=== PATIENT | female | born 1950 | race African-American/Black ===

== ENCOUNTER 2018-07-10 14:56 | Emergency (ER) | payer MEDICARE ==
[~2018-07-10] VITALS: Ht 162.6 cm; Wt 68.0 kg
--- NOTE | 2018-07-10 15:10 | NUR ---
ED Nurse Note: Pt came into to Er after pulling her right calf muscle while crossing the street x 1 hour ago. Complaining of 3/10 rt calf pain. Pt stated she took a tylenol x 1 hour ago after incident. A + O x4. Ambulatory. Skin warm to touch. No edema, redness, or trauma noted.
--- NOTE | 2018-07-10 15:20 | NUR ---
ED Nurse Note: Notified radiology of xray order. Awaiting arrival.
--- NOTE | 2018-07-10 15:36 | NUR ---
ED Nurse Note: X-RAY AT BEDSIDE FOR IMAGING.
--- NOTE | 2018-07-10 15:54 | NUR ---
ED Nurse Note: Pt declined knee immobilizer.
[2018-07-10 16:03] VITALS: BP 158/70
--- NOTE | 2018-07-10 16:05 | NUR ---
ED Nurse Note: Discharge instructions given to pt. Answered all questions. Verbalized understanding. No acute distress noted. ID band removed. Left ER w/ all belongings and w/ a steady gait.
--- NOTE | 2018-07-10 16:27 | Emergency Room Report ---
History of Present Illness General Chief Complaint: Lower Extremity Injury Source: Patient (ANANDA STEWARD) Present Illness HPI The patient is a 68-year-old female presenting for right knee pain. She states that she was walking today, placed her foot on uneven ground, and felt her knee twist. She heard a popping noise and felt pain to the right knee. Pain does not radiate. Worse with movement. Described as a 6 out of 10 dull ache. She did not fall. She denies previous injury to the knee. She denies any other symptoms including numbness, tingling, swelling (ANANDA STEWARD.Dillon) Allergies: Coded Allergies: No Known Allergies (Unverified , 07/10/18) Patient History Past Medical History: see triage record Pertinent Family History: none Reviewed Nursing Documentation: PMH: Agreed; PSxH: Agreed (ANANDA STEWARD) Nursing Documentation-PMH Hx Cardiac Problems: Yes - THROMBOSIS(1995) (ANANDA STEWARD) Review of Systems All Other Systems: negative except mentioned in HPI (ANANDA STEWARD P.AHermila) Physical Exam Vital Signs Date Time Temp Pulse Resp B/P (MAP) Pulse Ox O2 Delivery O2 Flow Rate FiO2 07/10/18 15:04 98.6 78 16 194/99 97 Room Air Sp02 EP Interpretation: reviewed, normal General Appearance: no apparent distress, alert, GCS 15, non-toxic Head: normocephalic, atraumatic Eyes: bilateral eye normal inspection, bilateral eye PERRL Musculoskeletal: normal inspection, normal range of motion, tender - posterior R knee Neurologic: alert, oriented x3, responsive, motor strength/tone normal, sensory intact, speech normal Psychiatric: judgement/insight normal, memory normal, mood/affect normal, no suicidal/homicidal ideation Skin: normal color, no rash, warm/dry, well hydrated (ANANDA STEWARD) Procedures Splinting Progress Pt declined (ANANDA STEWARD) Medical Decision Making PA Attestation Dr. Girard is my supervising physician. Patient management was discussed with my supervising physician (ANANDA STEWARD) Diagnostic Impression: Primary Impression: Knee sprain Qualified Codes: S83.91XA - Sprain of unspecified site of right knee, initial encounter ER Course The patient is a 68-year-old female presenting for right knee pain. Ddx considered include but not limited to sprain/strain, fracture, contusion Physical exam: No apparent distress Right knee: No obvious deformity. Full active range of motion is intact. No laxity. Normal gait. No edema. No skin changes. There is tenderness to palpation over posterior aspect. Right knee x-ray unremarkable for acute findings Right knee brace is ordered but patient refused. She also refused prescription medication. She was told to follow-up with primary care as soon as possible for further evaluation and treatment. She is told to return to emergency Department if she changes her mind about knee brace and/or prescription. ER precautions given (ANANDA STEWARD) Other X-Ray Diagnostic Results Other X-Ray Diagnostic Results : X-Ray ordered: R knee # of Views/Limited Vs Complete: 3 View Indication: Pain EP Interpretation: Yes PA Xray: Interpretation reviewed, by supervising MD, and agrees with findings. Interpretation: no dislocation, no soft tissue swelling, no fractures Impression: No acute disease Electronically Signed by: Ananda Steward PA-C (ANANDA STEWARD) Other X-Ray Diagnostic Results : Electronically Signed by: Alejandra Kim documentation of Xray reviewed by me and is accurate, Mark Girard MD (Mark Girard MD) Last Vital Signs Date Time Temp Pulse Resp B/P (MAP) Pulse Ox O2 Delivery O2 Flow Rate FiO2 07/10/18 16:03 98.0 78 16 158/70 99 Room Air Status: improved (ANANDA STEWARD P.AHermila) Disposition: HOME, SELF-CARE Condition: Improved Patient Instructions: LINDA for Routine Care of Injuries, Knee Sprain Additional Instructions: I discussed my findings with the patient. All questions and concerns have been answered. Treatment and medication compliance have been addressed. I advised the patient that they need to follow up with Primary doctor in 3-5 days. Return to ED if pain remains or worsens, numbness or tingling occurs, new rash is noticed, fever is noticed, or if needed for any reason. Patient verbalized understanding of discharge instructions. You have refused medication prescription and knee brace. Please return if you change your mind ANANDA STEWARD Jul 10, 2018 16:27 Mark Girard MD Jul 11, 2018 01:57
--- NOTE | 2018-07-11 12:11 | Diagnostic Imaging Report ---
Indication: Pain Technique: XRAY Knee 3v R Comparison: None Findings: Bone mineralization within normal limits. There is no evidence of acute fracture. There is mild degenerative change with medial compartment joint space narrowing and subchondral sclerosis. Some small patellar C5 also noted. There is a small suprapatellar joint effusion. No radiopaque foreign body. Atherosclerotic vascular calcifications noted. IMPRESSION: Mild degenerative change. No evidence of acute fracture. Small suprapatellar effusion. Atherosclerotic vascular calcifications.
== END 2018-07-10 16:05 | disposition home or self-care (01) ==
LOC: EMR 15:20
DX: S83.91XA Sprain of unspecified site of right knee, initial encounter (principal); X50.1XXA Overexertion from prolonged static or awkward postures, initial encounter; Y93.01 Activity, walking, marching and hiking; Y92.89 Other specified places as the place of occurrence of the external cause
CPT/HCPCS: 99283